=== PATIENT | male | born 1960 | race Caucasian/White ===

== ENCOUNTER 2017-10-17 10:25 | Emergency (ER) | payer BC, SELFPAY ==
[2017-10-17 10:26] VITALS: BP 114/79; PULSE 87; RESP 18; TEMP 37.2; O2SAT 98; BMI 22.9
--- NOTE | 2017-10-17 10:35 | EKG12_ITS ---
Test Reason : GEN ILLNESS Blood Pressure : / mmHG Vent. Rate : 066 BPM Atrial Rate : 066 BPM P-R Int : 182 ms QRS Dur : 078 ms QT Int : 368 ms P-R-T Axes : 071 062 058 degrees QTc Int : 385 ms Normal sinus rhythm Normal ECG Confirmed by BENNIE KNUTSON, BIENVENIDO ([id number]), electronic news gathering editor SAUNDRA HWANG ([id number]) on 10/19/2017 3:58:42 PM Referred By: JENNIFER Confirmed By:BIENVENIDO AVERY MD
--- NOTE | 2017-10-17 10:42 | ED.DCSUM_ITS ---
- ER Visit Summary Date of Service: 10/17/17 Chief Complaint: Weakness History of Present Illness: The patient is a 56 M [place] to the emergency department generalized weakness. The patient thinks that he may have had heat stroke yesterday. He states he was out in the heat all day Tuesday and yesterday morning. He states that he was feeling weakness and generalized malaise. He denies any chest pain or trouble breathing. He states that he did stay in the air conditioning all day yesterday and drink a lot of fluid. He states he does not feel like he is urinating enough. States even today, he is still felt weak and worn out. He denies any fevers or chills. He takes no daily medications. Physical Examination: Vital signs reviewed General: Well-nourished, well-developed Head: Normocephalic, atraumatic Eyes: Pupils equal and reactive, extraocular muscles intact Neck, supple, no lymphadenopathy Heart: Regular rate and rhythm Respiratory: No distress, clear bilaterally Abdomen: Soft, nontender, nondistended, no peritoneal signs Back: Nontender Extremities: Nontender, no edema, no cords Skin: Normal color no rash Neuro: Alert and oriented, no focal or lateralizing deficits Test Results: [] Emergency Department Course and Treatment: The patient presents with history of heat exposure and generalized malaise. His symptoms are consistent with heat exhaustion. I did obtain screening labs which are unremarkable. Also obtained EKG which is unremarkable. The patient was aggressively hydrated and observed. Within an hour, he is beginning to have some improvement of symptoms. I do feel that this patient safe for outpatient therapy. His exam is unremarkable. His repeat heart rate is in the 70s. He is resting comfortably. He will be discharged. Treatment Plan: [] Disposition: Charge Impression: 1. Heat exhaustion This note was generated with [facility] dictation software. It may contain incorrect words, spelling, and punctuation that were not noted in review of the chart prior to signing ED Disposition - Plan for ED Patient: Chief Complaint: General Illness Instructions: ED Exhaustion Heat Referrals: Lc Luther MD [NON-STAFF] -
[2017-10-17] MEDS: 0.9% Normal Saline 1,000 ML 1000 ML IV (10:56)
[2017-10-17 11:02] LABS: Absolute Lymphocyte Count 1.57 X10^3/ul (0.83-4.51); Absolute Neutrophil Count 5.8 X10^3/uL (2.0-7.7); Basophil# 0.01 X10^3/uL; Basophil% 0.1 % (0-1); Eosinophils% 1.3 % (0-5); Hematocrit 45.3 % (40-54); Hemoglobin 15.6 g/dl (13.0-16.5); Lymphocyte # 1.57 X10^3/ul (4.0); Lymphocyte % 19.8 % (19-41); Mean Corp Hgb Conc 34.4 g/gl (32-36); Mean Corpuscular Hgb 32.1 pg (27.0-32.0); Mean Corpuscular Volume 93.2 fL (80-94); Mean Platelet Vol. 8.9 fl (6.2-12.0); Monocyte# 0.42 X10^3/uL; Monocyte% 5.3 % (0-10); Neutrophil # 5.82 X10^3/uL (2.7-7.7); Neutrophil % 73.5 % (47-70); Platelet Count 298 K/mm3 (150-450); RBC Distribution Width CV 13.1 % (11.6-14.6); RBC Distribution Width SD 44.4 fl (35.1-43.9); Red Blood Count 4.86 M/mm3 (4.6-6.2); White Blood Count 7.9 K/mm3 (4.4-11.0)
[2017-10-17 11:03] LABS: POSITIVE COUNT NO; POSITIVE DIFFERENTIAL NO; POSITIVE MORPHOLOGY NO
[2017-10-17 11:15] LABS: Anion Gap 3 (5-15); BUN 9 mg/dL (7-18); BUN/Creat Ratio 10.3 RATIO (10-20); Calcium,Total 8.9 mg/dL (8.5-10.1); Chloride 108 mmol/L (98-107); Creatinine, Serum 0.87 mg/dL (0.70-1.30); EST Glomerular Filtration Rate 95 mL/min (>60); Est Glom Filt Rate - Afr Amer 115 mL/min (>60); Estimated Creatinine Clearance 95.01 ml/min; Glucose 99 mg/dL (74-106); Sodium Level 139 mmol/L (136-145)
[2017-10-17 11:54] VITALS: BP 119/72; PULSE 60; RESP 9; O2SAT 100
== END 2017-10-17 11:55 | disposition home or self-care (01) ==
LOC: ED 10:56
PROVIDERS: Emergency Provider Emergency Medicine; Family Provider Family Medicine; PCP Family Medicine
DX: T67.5XXA Heat exhaustion, unspecified, initial encounter (principal); X30.XXXA Exposure to excessive natural heat, initial encounter; Y93.9 Activity, unspecified; Y92.89 Other specified places as the place of occurrence of the external cause; Y99.9 Unspecified external cause status; Z87.891 Personal history of nicotine dependence
CPT/HCPCS: 80048; 85025; 93005; 99284; J7030; A4216

== ENCOUNTER 2017-12-18 10:47 | Emergency (ER) | payer BC, SELFPAY ==
[2017-12-18 10:48] VITALS: BP 144/76; PULSE 97; RESP 18; TEMP 37; O2SAT 98; BMI 22.9
--- NOTE | 2017-12-18 11:26 | ED.VISSUMM ---
- ER Visit Summary Date of Service: 12/18/17 Chief Complaint: Insect sting right upper arm History of Present Illness: The patient is a 57 M presenting after sting to his right arm which occurred 30 minutes prior to arrival. He complains of pain to the area. He denies any difficulty breathing or swallowing. He denies any sensation of tongue swelling. He was at home when this occurred. He denies other complaints. Physical Examination: Vitals are stable. Patient is afebrile. Alert no acute distress. HEENT exam is unremarkable. No tongue swelling. No pharyngeal edema Neck is supple. Lungs are clear and equal bilaterally. Heart is regular rate and rhythm. Abdomen is soft nontender nondistended. Extremities circular area of erythema to the right upper arm. Neurovascularly intact distally Skin is warm and dry. No focal neurologic deficit. Remainder of exam is unremarkable. Emergency Department Course and Treatment: Patient drove himself to the emergency department. He was given Kenalog IM. He was observed and had no further symptoms. On reevaluation he continues to have no difficulty breathing or swallowing. No tongue swelling. He is advised to take Benadryl as needed at home. He is advised to return to the ED for any worsening complaints. Advised to follow-up with his primary care physician. Disposition: Discharge home Impression: Insect sting, right upper arm This note was generated with [employer] dictation software. It may contain incorrect words, spelling, and punctuation that were not noted in review of the chart prior to signing ED Disposition - Plan for ED Patient: Chief Complaint: Bite Referrals: Celso Vazquez MD [Primary Care Provider] -
--- NOTE | 2017-12-18 11:29 | ED.DEP ---
ED Disposition - Plan for ED Patient: Chief Complaint: Bite Instructions: ED Bite Sting Insect Gen Allergic React Referrals: Celso Vazquez MD [Primary Care Provider] -
[2017-12-18] MEDS: Triamcinolone Acetonide 40 MG/ML Vial IM (12:15)
[2017-12-18 12:36] VITALS: BP 129/79; PULSE 81; RESP 16; O2SAT 99
== END 2017-12-18 12:37 | disposition home or self-care (01) ==
LOC: ED 11:45
PROVIDERS: Emergency Provider Emergency Medicine; Family Provider Family Medicine; PCP Family Medicine
DX: S40.861A Insect bite (nonvenomous) of right upper arm, initial encounter (principal); W57.XXXA Bitten or stung by nonvenomous insect and other nonvenomous arthropods, initial encounter; Y93.9 Activity, unspecified; Y92.89 Other specified places as the place of occurrence of the external cause; Y99.9 Unspecified external cause status; Z72.0 Tobacco use
CPT/HCPCS: 96372; 99282

== ENCOUNTER → 2018-08-14 09:27 | Outpatient (CLI) | payer BC, SELFPAY ==
--- NOTE | 2018-08-14 09:38 | MRI_ITS ---
STUDY: MRI CERVICAL SPINE WITHOUT CONTRAST REASON FOR EXAM: Male, 57 years old. Cervical myelopathy, right arm pain TECHNIQUE: Standardized fat and water weighted pulse sequences were obtained in the sagittal and axial planes. COMPARISON: None FINDINGS: Normal foramen magnum and brainstem-cervical cord junction. Normal craniovertebral junction. Normal anterior atlantoaxial articulation. Normal odontoid process. There is mild reversal of the normal cervical lordosis. There are Modic changes in the C6 and C7 vertebral bodies. C2-3: Normal endplates. Normal disc height, signal and morphology. Normal central canal and intervertebral neural foramina. C3-4: Normal endplates. There is posterior disc osteophyte complex and mild annular disc bulge abutting the ventral spinal cord and causing mild central canal narrowing. Moderate right and mild left foraminal narrowing.. C4-5: Normal endplates. There is annular disc bulge and right paracentral and foraminal disc osteophyte complex abutting the ventral spinal cord and causing moderate central canal narrowing with effacement of the dorsal CSF space. There is marked right uncovertebral hypertrophy. Marked right and moderate left foraminal narrowing. C5-6: Normal endplates. There is posterior disc osteophyte complex and mild annular disc bulge abutting the ventral spinal cord and causing mild central canal narrowing. There is marked left uncovertebral hypertrophy. Moderate right and marked left foraminal narrowing.. C6-7: Normal endplates. There is posterior disc osteophyte complex and mild annular disc bulge causing mild central canal narrowing. There is marked left uncovertebral hypertrophy. mild right and marked left foraminal narrowing.. There is a 5 mm right foraminal cyst C7-T1: Normal endplates. Normal disc height, signal and morphology. Normal central canal and intervertebral neural foramina. There is a 4 mm left foraminal cyst. Normal cervical cord. Normal visualized soft tissue structures. MRI/Spine Cervical (Routine) IMPRESSION: Moderate to marked multilevel degenerative disc disease is most prominent at C3-C4, C4-C5, C5-C6 and C6-C7 as described above. Electronically Signed: Inez Hairston, at 11:22 EDT Tel , Service support ,
--- NOTE | 2018-08-14 09:38 | MRI_ITS ---
STUDY: MRI RIGHT SHOULDER REASON FOR EXAM: Male, 57 years old. Right shoulder pain radiating from the neck TECHNIQUE: Standardized fat and water weighted pulse sequences were obtained in all 3 orthogonal planes. COMPARISON: None. FINDINGS: Normal supraspinatus tendon. Normal infraspinatus tendon. Normal subscapularis tendon. Normal teres minor tendon. Normal supraspinatus muscle. Normal infraspinatus muscle. Normal subscapularis muscle. Normal teres minor muscle. Normal glenohumeral articulation. Normal humeral head and visualized proximal humerus. Normal biceps labral complex. Normal intracapsular long biceps tendon. Normal labrum. Normal capsulo- ligamentous complex. Normal rotator interval. There is mild osteoarthritis of the acromioclavicular articulation. There is a Type II morphology (curved), with a neutral orientation. There is no subacromial-subdeltoid bursal fluid. Normal visualized coracohumeral and coracoacromial ligaments. Normal quadrilateral space. Normal axillary space. Normal deltoid muscle. Normal trapezius muscle. MRI/Upper Ext Joint Only(Routine) IMPRESSION: Mild osteoarthritis of the acromioclavicular joint. Otherwise, normal MRI of the shoulder. Electronically Signed: Inez Yovanny, at 12:00 EDT Tel , Service support ,
== END ==
PROVIDERS: Family Provider Family Medicine; PCP Family Medicine; Referring Provider Orthopaedic Surgery; Visit Provider Orthopaedic Surgery
DX: G95.9 Disease of spinal cord, unspecified (principal); M25.511 Pain in right shoulder
CPT/HCPCS: 72141; 73221

== ENCOUNTER 2018-11-09 09:13 | Outpatient (RCR) | payer BC, SELFPAY ==
--- NOTE | 2018-11-06 11:17 | HP.OTFCE.D ---
[facility] D/C Summary - Discharge SOILA TREJO WAS NOT SEEN FOR [facility] DISABILITY WAS APPROVED AND HE CANCELED APPOINTMENT ON 11/06/18 AND IS DISCHARGED.
== END 2018-11-09 09:14 | disposition home or self-care (01) ==
LOC: OT 09:13
PROVIDERS: Family Provider Family Medicine; PCP Family Medicine; Referring Provider Family Medicine; Visit Provider Family Medicine
DX: M50.31 Other cervical disc degeneration, high cervical region (principal)

== ENCOUNTER 2024-03-01 07:48 | Emergency (ER) | payer BC, MEDICARE, SELFPAY ==
[2024-03-01 07:49] VITALS: BP 123/87; PULSE 68; RESP 18; TEMP 36.6; O2SAT 98; BMI 22.7
--- NOTE | 2024-03-01 07:59 | EDS_ITS ---
HPI History of Present Illness Chief Complaint: Bite Informant: patient Narrative Narrative: 63-year-old male presenting to the emergency room with the chief complaint of bat bite. Patient states he came home this morning and noticed something on the floor. He has 2 Huskies and believes that they attacked the bat. He went to pick it up and the creature bit his right index finger. He states he washed the wound and put rubbing alcohol on it and noticed 2 small pinpoint injuries to the fat pad of the right index finger. Denies any other injuries. Tetanus Immunization: 5-10 years PFSH PFS Home Medications ?Medication ?Instructions ?Recorded ?Last Taken ?Type NK 10/17/17 Unknown History Allergy/AdvReac Type Severity Reaction Status Date / Time No Known Allergies Allergy Verified 12/18/17 10:49 Social History Smoking Status: Current every day smoker tobacco type: cigarettes ROS ROS ED Constitutional Constitutional ED: Denies chills or weight loss Eyes Eyes: Denies change in vision or diplopia ENT ENT ED: Denies ear pain, rhinorrhea or sore throat Cardiovascular Cardiovascular: Denies chest pain, orthopnea, palpitations or racing heartbeat Respiratory/Chest Respiratory/Chest: Denies cough, dyspnea or orthopnea Gastrointestinal Gastrointestinal: Denies abdominal pain, diarrhea, nausea or vomiting Genitourinary Genitourinary ED: Denies dysuria, hematuria or urinary frequency Musculoskeletal Musculoskeletal: Denies arthralgias or myalgias Integumentary Reports other Details: See history of present illness ; Denies abscess or rash Neurologic Neurologic: Denies headache(s) or weakness Psychiatric Psychiatric: Denies anxiety, depression, suicidal ideation or suicidal thoughts Endocrine Endocrinology: Denies polydipsia, polyphagia or polyuria Allergic/Immunologic Allergic/Immunologic ED: Denies mouth swelling, tongue swelling or urticaria EXAM Physical Exam Const Vital Signs: 03/01/24 07:49 Temperature 97.8 F Temperature Source Oral Pulse Rate 68 Respiratory Rate 18 Blood Pressure 123/87 H Blood Pressure Mean 99 Pulse Ox 98 Oxygen Delivery Method Room Air Positive well nourished and well developed General Appearance ED: well developed and NAD HEENT Reports normocephalic, head/scalp atraumatic and moist mucous membranes Eyes PERRL and EOMs intact bilaterally Neck no lymphadenopathy, supple and no JVD Resp normal respiratory effort and clear to auscultation bilaterally Cardio regular rate, regular rhythm and no murmurs GI normal to inspection, nondistended, normoactive bowel sounds and non-tender Palpation: soft Back/Spine no CVA tenderness and normal ROM Extremity normal to inspection Extremity Narrative: There is no focal swelling ecchymosis scab or obvious lesions. He points to a specific area but I do not see a obvious puncture. General Extremety ED: Negative for edema General Extremity: Negative for edema Neuro oriented x3 and CN's II-XII intact bilaterally Sensorium / Orientation: alert Motor Exam: strength 5/5 throughout Psych mental status grossly normal Mood & Affect: Negative for depressed or tearful Skin no rashes or lesions noted and no wounds MDM MDM MDM Narrative Medical decision making narrative: Differential diagnosis includes but not limited to bite abrasion rabies exposure Patient will be given rabies vaccination and immunoglobulin. Local wound care and monitoring of finger for infection. Vaccination schedule given to patient. I injected 4.8 mL into the dorsum of the right hand in the interspace between the thumb and the index finger. The skin was cleansed with alcohol prep pad. After injection bleeding controlled Band-Aid applied History & Record Review Discussion w/independent historian: Patient Discharge Plan Triage Chief Complaint: Bite ED Provider: Scot Garcia Dx/Rx/DC Orders Clinical Impression: Bat bite of finger Instructions: Understanding Rabies Prescriptions: No Action NK Primary Care Provider: Celso Vazquez Referrals: Celso Vazquez MD [Primary Care Provider] - As Needed Print Language: Greenlandic Disposition Disposition: Home, Self Care
[2024-03-01] MEDS: Rabies Immune Globulin/PF 300 UNIT/ML, 5 ML VIAL 1440 UNIT IM (08:38)
[2024-03-01] MEDS: Rabies Vaccine,Human Diploid 2.5 UNITS Vial IM (08:45)
[2024-03-01 09:24] VITALS: BP 120/73; PULSE 76; RESP 14; TEMP 36.6; O2SAT 98
== END 2024-03-01 09:25 | disposition home or self-care (01) ==
PROVIDERS: Emergency Provider Emergency Medicine; PCP Family Medicine; Visit Provider Emergency Medicine
DX: S61.250A Open bite of right index finger without damage to nail, initial encounter (principal); F17.210 Nicotine dependence, cigarettes, uncomplicated; Z23 Encounter for immunization; W55.81XA Bitten by other mammals, initial encounter
CPT/HCPCS: 90675; 96372; 99283; 90375

== ENCOUNTER 2024-03-04 08:33 | Outpatient (CLI) | payer BC, MEDICARE, SELFPAY ==
[2024-03-04 08:40] VITALS: BP 135/87; PULSE 94; RESP 16; TEMP 36.6; O2SAT 100
[2024-03-04 08:41] VITALS: BP 135/87; PULSE 94; RESP 16; TEMP 36.6; O2SAT 100; BMI 22.8
[2024-03-04] MEDS: Rabies Vaccine,Human Diploid 2.5 UNITS Vial IM (08:50)
== END 2024-03-04 08:55 | disposition home or self-care (01) ==
PROVIDERS: PCP Family Medicine; Visit Provider Emergency Medicine
DX: Z23 Encounter for immunization (principal)
CPT/HCPCS: 90675; 96372

== ENCOUNTER 2024-03-08 08:15 | Outpatient (CLI) | payer BC, MEDICARE, SELFPAY ==
[2024-03-08 08:15] VITALS: BP 134/71; PULSE 84; RESP 12; O2SAT 99
[2024-03-08] MEDS: Rabies Vaccine,Human Diploid 2.5 UNITS Vial IM (08:43)
[2024-03-08 08:49] VITALS: BP 136/81; PULSE 82; RESP 14; TEMP 36.3; O2SAT 98
== END 2024-03-08 09:12 | disposition home or self-care (01) ==
LOC: ED 09:12
PROVIDERS: PCP Family Medicine
DX: Z23 Encounter for immunization (principal)
CPT/HCPCS: 90675; 96372

== ENCOUNTER 2024-03-15 08:02 | Outpatient (CLI) | payer BC, MEDICARE, SELFPAY ==
[2024-03-15 08:03] VITALS: BP 121/79; PULSE 84; RESP 16; TEMP 36.7; O2SAT 100; BMI 22.2
[2024-03-15 08:05] VITALS: BMI 22.1
[2024-03-15] MEDS: Rabies Vaccine,Human Diploid 2.5 UNITS Vial IM (08:52)
== END 2024-03-15 08:54 | disposition home or self-care (01) ==
PROVIDERS: PCP Family Medicine
DX: Z23 Encounter for immunization (principal)
CPT/HCPCS: 90471; 90675

== ENCOUNTER 2025-04-26 12:29 | Emergency (ER) | payer BC, MEDICARE, SELFPAY ==
[2025-04-26] VITALS (7 sets, daily range): BP systolic 115–139; BP diastolic 60–77; PULSE 80–92; RESP 16–19; TEMP 36.4–37; O2SAT 98–100; BMI 21.4
--- OUTSIDE RECORDS SUMMARY | 2025-04-26 13:34 | XMS RPT_ITS | CCD ---
Author Organization [facility] Care Team Providers Care Flight Engineer Helicopter Name Role Phone AUGUSTA CHENG Unavailable Unavailable Scot Garcia Attending Unavailable Augusta Cheng Primary Care Unavailable Provider, Ed Physician Attending Augusta Owens Primary Care Unavailable Provider, Ed Physician Attending Augusta Owens Primary Care Unavailable Augusta Cheng Primary Care Unavailable Scot Garcia Attending Unavailable SAE OLIVARES Referring Unavailable PROVIDER, UNKNOWN Admitting Unavailable PROVIDER, UNKNOWN Attending Unavailable SAE OLIVARES Referring Unavailable PROVIDER, UNKNOWN Admitting Unavailable PROVIDER, UNKNOWN Attending Unavailable Medications Current Medications Medication Drug Class(es) Dates Sig (Normalized) Sig (Original) COMPOUNDED PRESCRIPTION (4 sources) Start: 04-23-2016 COMPOUNDED PRESCRIPTION Sildenafil 20 mg pills. Take as directed prn prior to sexual activity 25 tablet 3 04/23/2016 Active Comment on above: Sildenafil 20 mg pil ls. Take as directed prn prior to sexual activity metFORMIN hydrochloride 500 mg oral tablet (4 sources) Biguanide Start: 10-25-2016 take 1 tablet by mouth twice daily at mealtime metFORMIN (GLUCOPHAGE) 500 mg tablet Indications: Elevated glucose Take 1 tablet by mouth twice daily with meals. . 60 tablet 11 10/25/2016 Active Comment on above: Take 1 tablet by oma th twice daily with meals. . MULTI-VITAMIN ORAL (4 sources) MULTI-VITAMIN ORAL Take by mouth. 0 Active Comment on above: Take by mouth. naproxen sodium 220 mg oral tablet (4 sources) Nonsteroidal Anti-inflammatory Drug Start: 10-22-2016 take 2 tablets by mouth twice daily at mealtime naproxen sodium (ALEVE) 220 mg tablet Take 2 tablets by mouth twice daily with meals. TAKE WITH FOOD 0 10/22/2016 Active Comment on above: Take 2 tablets by mo uth twice daily with meals. TAKE WITH FOOD tadalafil 20 mg oral tablet (4 sources) Phosphodiesterase 5 Inhibitor Start: 07-28-2015 take 1 tablet by mouth once daily Tadalafil (CIALIS) 20 mg tablet Indications: Erectile dysfunction, unspecified erectile dysfunction type Take 1 tablet by mouth once daily. 6 tablet 5 07/28/2015 Active Comment on above: Take 1 tablet by oma th once daily. Vitamin B Complex (4 sources) vitamin B comple x (SUPER B [id number] ORAL) Take by mouth. 0 Active Comment on above: Take by mouth. Problems Active Problems Problem Classification Problem Date Documented Da te Episodic/Chronic Calculus of urinary tract (4 sources) Kidney stone; Translations: [Calculus of kidney] 04-27-2021 Episodic Immunizations and screening for infectious disease (1 source) Encounter for immunization; Translations: [Encounter for immunization] Onset: 04-09-2024 Episodic Open wounds of extremities (1 source) Open bite of right index finger without damage to nail, initial encounter; Translations: [Open bite of right index finger without damage to nail, initial encounter] Onset: 03-21-2024 Episodic Other male genital disorders (4 sources) Male erectile dysfunction, unspecified; Translations: [Impotence of organic origin] Onset: 07-28-2015 07-28-2015 Chronic Spondylosis; intervertebral disc disorders; other back problems (1 source) Cervicalgia; Translations: [Cervicalgia] Onset: 02-12-2025 Episodic Unclassified (1 source) Low back pain, unspecified; Translations: [Low back pain, unspecified] Onset: 02-12-2025 Past or Other Problems Problem Classification Problem Date Documented Da te Episodic/Chronic Other lower respiratory disease (4 sources) H/O: pneumothorax; Translations: [Personal history of other diseases of the respiratory system] Onset: 07-28-2015 07-28-2015 Episodic Other non-traumatic joint disorders (1 source) Pain in right shoulder; Translations: [Pain in right shoulder] Onset: 10-22-2016 Episodic Results Test Name Value Interpretation Reference Range Facil ity Emergency Department Summary on 03-01-2024 Emergency Department Summary [facility] Medical Records Department [address] [place] [address] Emergency Department Summary 03/01/24 MR#: [id number] Acct: [id number] Name: SOILA GALINDO Rep #: [id number] : 1960 63 From: Scot Garcia DO PCP: Dr. Augusta Cheng MD Status:DEP ER Location: ED HPI History of Present Illness Chief Complaint: Bite Informant: patient Narrative Narrative: 63-year-old male presenting to the emergency room with the chief complaint of bat bite. Patient states he came home this morning and noticed something on the floor. He has 2 Huskies and believes that they attacked the bat. He went to pick it up and the creature bit his right index finger. He states he washed the wound and put rubbing alcohol on it and noticed 2 small pinpoint injuries to the fat pad of the right index finger. Denies any other injuries. Tetanus Immunization: 5-10 years PFSH PFSH Home Medications ???Medication ???Instructions ???Recorded ???Last Taken ???Type NK 10/17/17 Unknown History Allergy/AdvReac Type Severity Reaction Status Date / Time No Known Allergies Allergy Verified 12/18/17 10:49 Social History Smoking Status: Current every day smoker tobacco type: cigarettes ROS ROS ED Constitutional Constitutional ED: Denies chills or weight loss Eyes Eyes: Denies change in vision or diplopia ENT ENT ED: Denies ear pain, rhinorrhea or sore throat Cardiovascular Cardiovascular: Denies chest pain, orthopnea, palpitations or racing heartbeat Respiratory/Chest Respiratory/Chest: Denies cough, dyspnea or orthopnea Gastrointestinal Gastrointestinal: Denies abdominal pain, diarrhea, nausea or vomiting Genitourinary Genitourinary ED: Denies dysuria, hematuria or urinary frequency Musculoskeletal Musculoskeletal: Denies arthralgias or myalgias Integumentary Reports other Details: See history of present illness ; Denies abscess or rash Neurologic Neurologic: Denies headache(s) or weakness Psychiatric Psychiatric: Denies anxiety, depression, suicidal ideation or suicidal thoughts Endocrine Endocrinology: Denies polydipsia, polyphagia or polyuria Allergic/Immunologic Allergic/Immunologic ED: Denies mouth swelling, tongue swelling or urticaria EXAM Physical Exam Const Vital Signs: 03/01/24 07:49 Temperature 97.8 F Temperature Source Oral Pulse Rate 68 Respiratory Rate 18 Blood Pressure 123/87 H Blood Pressure Mean 99 Pulse Ox 98 Oxygen Delivery Method Room Air Positive well nourished and well developed General Appearance ED: well developed and NAD HEENT Reports normocephalic, head/scalp atraumatic and moist mucous membranes Eyes PERRL and EOMs intact bilaterally Neck no lymphadenopathy, supple and no JVD Resp normal respiratory effort and clear to auscultation bilaterally Cardio regular rate, regular rhythm and no murmurs GI normal to inspection, nondistended, normoactive bowel sounds and non-tender Palpation: soft Back/Spine no CVA tenderness and normal ROM Extremity normal to inspection Extremity Narrative: There is no focal swelling ecchymosis scab or obvious lesions. He points to a specific area but I do not see a obvious puncture. General Extremety ED: Negative for edema General Extremity: Negative for edema Neuro oriented x3 and CN's II-XII intact bilaterally Sensorium / Orientation: alert Motor Exam: strength 5/5 throughout Psych mental status grossly normal Mood Affect: Negative for depressed or tearful Skin no rashes or lesions noted and no wounds MDM MDM MDM Narrative Medical decision making narrative: Differential diagnosis includes but not limited to bite abrasion rabies exposure Patient will be given rabies vaccination and immunoglobulin. Local wound care and monitoring of finger for infection. Vaccination schedule given to patient. I injected 4.8 mL into the dorsum of the right hand in the interspace between the thumb and the index finger. The skin was cleansed with alcohol prep pad. After injection bleeding controlled Band-Aid applied History Record Review Discussion w/independent historian: Patient Discharge Plan Triage Chief Complaint: Bite ED Provider: Scot Garcia Dx/Rx/DC Orders Clinical Impression: Bat bite of finger Instructions: Understanding Rabies Prescriptions: No Action NK Primary Care Provider: Augusta Cheng Referrals: Augusta Cheng MD [Primary Care Provider] - As Needed Print Language: Frisian Disposition Disposition: Home, Self Care What to do if you have Problems For any increased pain, shortness of breath, bleeding, nausea or vomiting, chest pain, or any unexpected problems, contact your Primary Care Provider. Call Doct (more content not included)... [facility] SOILA GALINDO ([id number]) 1960 M Date Time Provider Department 10/24/23 AUGUSTA CHENG During your visit today, we recorded the following information about you: Su Crowley MA 10/24/2023 8:41 AM Signed Type of form: FMLA Intermittent from pt's spouse Employer [employer] Form received via walk in When form is completed, Fax form to [phone], contact to see if she wants to olive picker original. Form has been forwarded to Physician Desk: CHANTAL Linton Kathryn, MA 11/04/2023 8:22 AM Signed Faxed. Shahnaz Bravo MA Allergies As of Date: 10/24/2023 (No Known Allergies) Date Reviewed: 12/12/2020 Reviewed by: Monica Hernandez APRN.BIN WORKER - Fully Assessed Reason for Visit: Forms [913] Cmt: FMLA Prescriptions as of 11/04/2023 - vitamin B complex (SUPER B [id number] ORAL) Take by mouth. - MULTI-VITAMIN ORAL Take by mouth. - metFORMIN (GLUCOPHAGE) 500 mg tablet Take 1 tablet by mouth twice daily with meals. . - naproxen sodium (ALEVE) 220 mg tablet Take 2 tablets by mouth twice daily with meals. TAKE WITH FOOD - COMPOUNDED PRESCRIPTION Sildenafil 20 mg pills. Take as directed prn prior to sexual activity - Tadalafil (CIALIS) 20 mg tablet Take 1 tablet by mouth once daily. Problem List As Of Date 10/24/2023 Noted Resolved Renal calculi [N20.0] History of pneumothorax [Z87.09] 07/28/2015 Erectile dysfunction [N52.9] 07/28/2015 Encounter Status:Closed by SHAHNAZ BRAVO on 11/04/23 [facility] Encounters Encounter Date Encounter Type Care Provider Facility Start: 02-12-2025 End: 02-12-2025 ambulatory SAE OLIVARES [facility] Start: 03-15-2024 End: 03-15-2024 ambulatory Ed Physician Provider Facility:[facility] Start: 03-08-2024 End: 03-08-2024 ambulatory Ed Physician Provider Facility:[facility] Start: 03-04-2024 End: 03-04-2024 ambulatory Scot Garcia Facility:[facility] Start: 03-01-2024 End: 03-01-2024 Emergency department patient visit Augusta Cheng Facility:[facility] Start: 10-24-2023 Telephone encounter Augusta roe MD Work Phone: [facility] Comment on above: Forms (FMLA) Start: 07-15-2022 Orders Only August[facility] estrada MD [facility] Start: 10-05-2021 Telephone encounter Augusta roe MD Work Phone: [facility] Comment on above: Forms Start: 10-22-2016 Ambulatory AUGUSTA CHENG [facility] Procedures Date Procedure Procedure Detail Performing Clinician Start: 12-15-2020 Lipid 1996 panel - S charity or Plasma Augusta Cheng MD Work Phone: Start: 12-12-2020 Adult depression screening assessment Augusta Cheng MD Work Phone: Plan of Treatment Date Care Activity Detail Author Start: 04-04-2028 Urine microalbumin profile [facility] Start: 12-19-2025 PROSTATE CANCER SCRE ENING DISCUSSION PROSTATE CANCER SCREENING DISCUSSION [facility] Start: 12-19-2025 Prostate specific an tigen measurement Prostate Cancer Screening Discussion [facility] Start: 12-15-2025 Lipid panel Lipid Screening [facility] Start: 12-15-2025 LIPID SCREEN LIPID SCREEN [facility] Start: 01-01-2024 Influenza vaccination Influenza Vacc ine (#1) [facility] Start: 12-16-2023 DIABETES SCREEN [facility] Start: 12-16-2023 Diabetes Screening Diabetes Screenin g [facility] Start: 05-02-2023 Behavioral Health Screening Behavioral Health Screening [facility] Start: 12-31-2022 Covid-19 Vaccine ( season) Covid-19 Vaccine ( season) [facility] Start: 05-02-2022 DEPRESSION ASSESSMENT DEPRESSION ASS ESSMENT [facility] Start: 12-31-2021 Influenza vaccination C [facility] Start: 12-12-2021 Adult depression screening assessment DEPRESSION SCREENING [facility] Start: 12-12-2021 COLORECTAL CANCER SCREENING COLORECTAL CANCER SCREENING [facility] Comment on above: Postponed from 12/08 (Declined at this time) Start: 02-27-2019 FECAL OCCULT BLOOD FECAL OCCULT BLOO D [facility] Start: 02-27-2019 Screening for malign ant neoplasm of colon Fecal Occult Blood [facility] Start: 2018 RSV Vaccine (1 - 1-d ose 60+ series) RSV Vaccine (1 - 1-dose 60+ series) [facility] Start: 02-28-2018 COLORECTAL CANCER SCREENING COLORECTAL CANCER SCREENING [facility] Start: 02-28-2018 Screening for malign ant neoplasm of colon Colorectal Cancer Screening [facility] Start: 2008 SHINGRIX VACCINE (1 of 2) SHINGRIX V ACCINE (1 of 2) [facility] Start: 12-09-2003 COLOGUARD (FIT-DNA) COLOGUARD (FIT-D NA) [facility] Start: 12-09-2003 Colonoscopy COLONOSCOPY [facility] Start: 12-09-[address] COLONOGRAPHY [facility] Start: 12-09-2003 Screening for malign ant neoplasm of colon [facility] Start: 12-09-2003 SIGMOIDOSCOPY SIGMOIDOSCOPY [facility] Start: 1964 PNEUMOCOCCAL (1 - PCV) PNEUMOCOCCAL (1 - PCV) [facility] Start: 1964 Pneumococcal vaccination Pneum ococcal Vaccine (1 of 2 - PCV) [facility] Start: 12-09-1963 COVID-19 VACCINE (#1) COVID-19 VACCI NE (#1) [facility] Start: 06-10-1959 COVID-19 VACCINE (#1) COVID-19 VACCI NE (#1) [facility] Immunizations Immunization Date Immunization Notes Care Provider Domingo gomes 02-27-2018 influenza virus vaccine, unspecified formulation Augusta Cheng MD Work Phone: [facility] Payers Date Payer Category Payer Self-pay 2024 Unknown [id number] 2024 Unknown [id number] 2020 Unknown [employer]P [id number] 2020-Present [phone] [address] [id number] PPO [id number] 2018 Unknown [id number] Unknown [id number] Unknown [id number] Unknown [id number] Unknown [id number] Social History Date Type Detail Facility Start: 11-05-2016 Tobacco smoking stat us [facility] Smokes tobacco daily [facility] Start: 12-12-2020 End: 12-16-2021 Alcohol intake Current drinker of alcohol (finding) [facility] Start: 04-06-2020 End: 12-12-2020 Alcohol intake [facility] Start: 1960 Sex Assigned At Not on file [facility] History of tobacco use Cigarette Smoker [facility] Start: 11-05-2016 Tobacco use and exposure Smoke less tobacco non-user [facility] Start: 04-06-2020 End: 12-16-2021 Tobacco use panel [facility] Adult Depression Scr eening Assessment 2 [facility] Telephone encounter Note 11-04-2023 Telephone Encounter - Shahnaz Bravo MA - 11/04/2023 8:22 AM EDT Note Date & Type Note Facility 11-04-2023 Telephone encount er Note Faxed. Shahnaz Bravo MA [facility] Note 11-04-2023 Telephone Encounter - Shahnaz Bravo MA - 11/04/2023 8:22 AM EDTTelephone Encounter - Su Crowley MA - 10/24/2023 8:40 AM EDT Note Date & Type Note Facility 11-04-2023 Miscellaneous Notes Formattin g of this note might be different from the original. Faxed. Shahnaz Bravo MA Type of form: FMLA Intermittent from pt's spouse Employer [employer] Form received via walk in When form is completed, Fax form to [phone], contact to see if she wants to olive picker original. Form has been forwarded to Physician Desk: Dr. Taylor Crowley MA documented in this encounter [facility] Telephone encounter Note 10-24-2023 Telephone Encounter - Su Crowley MA - 10/24/2023 8:40 AM EDT Note Date & Type Note Facility 10-24-2023 Telephone encount er Note Type of form: FMLA Intermittent from pt's spouse Employer [employer] Form received via walk in When form is completed, Fax form to [phone], contact to see if she wants to olive picker original. Form has been forwarded to Physician Desk: Dr. Taylor Crowley MA [facility] History of Present illness Narrative 07-15-2022 Augusta Cheng MD - 07/15/2022 4:20 PM EDT Note Date & Type Note Facility 07-15-2022 History of Presen t illness Narrative Opened in error Augusta Cheng MD documented in this encounter [facility] Note 10-05-2021 Telephone Encounter - Su Crowley Ma - 10/05/2021 10:04 AM EDT Note Date & Type Note Facility 10-05-2021 Miscellaneous Notes Office received FMLA forms for pt to be completed for , Leatha Galindo. This has been faxed back to Comfort Esparza at the [employer] [facility] [employer] at [phone]. Su Crowley Ma documented in this encounter [facility] Summary Purpose Family History No Family History Records FoundNo Family History Records FoundNo Family History Records FoundNo Family History Records Found Advance Directives No Advanced Directives Records FoundNo Advanced Directives Records FoundNo Advanced Directives Records FoundNo Advanced Directives Records Found Additional Source Comments (unrecognized sect ion and content) No Status Records FoundNo Status Records FoundNo Status Records FoundNo Status Records Found INFORMATION SOURCE (unrecogn ized section and content) DATE [facility] DATE CREATED AUTHOR AUTHOR'S ORGANIZ ATION 11/04/2023 [facility] DATE CREATED AUTHOR AUTHOR'S ORGANIZ ATION 04/12/2024 [facility] DATE CREATED AUTHOR AUTHOR'S ORGANIZ ATION 02/13/2025 [employer] [facility] Source Comments (unrecognize d section and content) In the event this informatio n is protected by the Federal Confidentiality of Alcohol and Drug Abuse Patient Records regulations: The Federal rules restrict any use of the information to criminally investigate or prosecute any alcohol or drug abuse patient.[facility] the event this information is protected by the Federal Confidentiality of Alcohol and Drug Abuse Patient Records regulations: The Federal rules restrict any use of the information to criminally investigate or prosecute any alcohol or drug abuse patient.[facility] the event this information is protected by the Federal Confidentiality of Alcohol and Drug Abuse Patient Records regulations: The Federal rules restrict any use of the information to criminally investigate or prosecute any alcohol or drug abuse patient.[facility] the event this information is protected by the Federal Confidentiality of Alcohol and Drug Abuse Patient Records regulations: The Federal rules restrict any use of the information to criminally investigate or prosecute any alcohol or drug abuse patient.[facility] Reason for Visit (unrecogniz ed section and content) Reason Comments Forms Reason Comments Forms FMLA Care Teams (unrecognized sec tion and content) [employer] Relationship Specialty Start Date End Date Augusta Cheng MD [address] [place] [address] PCP - General Family Practice 07/28/15 [employer] Relationship Specialty Start Date End Date Augusta Cheng MD [address] [place] [address] PCP - General Family Medicine 07/28/15 [employer] Engineer [employer] Relationship Specialty Start Date End Date Augusta Cheng MD [address], [place] [address] PCP - General Family Medicine 07/28/15 Flight Engineer Helicopter Relationship Specialty Start Date End Date Augusta Cheng MD [address], [place] [address] PCP - General Family Medicine 07/28/15 FOR RECORDS PERTAINING TO PATIENTS WHO ARE OR HAVE BEEN ENROLLED IN A CHEMICAL DEPENDENCY/SUBSTANCEABUSE PROGRAM, SOME INFORMATION MAY BE OMITTED. This clinical summary was aggregated from multiple sources. Caution should be exercised in using it in the provision of clinical care. This summary normalizes information from multiple sources, and as a consequence, information in this document may materially change the coding, format and clinical context of patient data. In addition, data may be omitted in some cases. CLINICAL DECISIONS SHOULD BE BASED ON THE PRIMARY CLINICAL RECORDS. [facility]. provides no warranty or guarantee of the accuracy or completeness of information in this document.
--- NOTE | 2025-04-26 13:42 | EKG12_ITS ---
Test Reason : CP Blood Pressure : */* mmHG Vent. Rate : 80 BPM Atrial Rate : 80 BPM P-R Int : 172 ms QRS Dur : 80 ms QT Int : 354 ms P-R-T Axes : 36 71 67 degrees QTcB Int : 408 ms Normal sinus rhythm Borderline ECG Baseline wander Confirmed by Joby Rojo ([id number]), editorial assistant LARY CURTIS ([id number]) on 04/30/2025 6:15:06 AM Referred By: ANDREW/MARLINE Confirmed By: Joby Rojo
--- NOTE | 2025-04-26 13:55 | RAD_ITS ---
PROCEDURE: CHEST PA AND LATERAL 04/26/2025 REASON FOR EXAM: COUGH TECHNIQUE: Procedure Code: RADCXR Modality: DX Procedure: CHEST PA AND LATERAL FINDINGS: No focal consolidation. No pleural effusion or pneumothorax. Cardiac silhouette is within normal limits. No acute fractures. RAD/Chest PA and Lateral IMPRESSION: No focal consolidations. Reading Location: [facility]
--- NOTE | 2025-04-26 15:11 | EX.ED.DYSGE1 ---
HPI History of Present Illness Chief Complaint: Shortness of Breath Narrative Narrative: Patient is a 64-year-old male with past medical history of tobacco use who presents to the emergency department the chief complaint of cough, congestion not feeling well overall. He states that everybody in the house has been ill recently and he states that he was the last 1 to come down with the illness. He states that 2 days ago he had nausea vomiting as well as diarrhea but this has since resolved. He states that he wanted to be sure that he did not have pneumonia. PFSH PFS Medical History Smoker Home Medications ?Medication ?Instructions ?Recorded ?Last Taken ?Type prednisone 50 mg tablet 50 mg PO BID #4 tabs 04/26/25 Unknown Rx Allergy/AdvReac Type Severity Reaction Status Date / Time No Known Allergies Allergy Verified 04/26/25 12:29 Social History Smoking Status: Current every day smoker tobacco type: cigarettes ROS ROS ED ROS Narrative Constitutional: Denies any fevers, chills, headache Eyes: Denies double vision Cardiovascular: Denies chest pain Respiratory: Complains of cough Abdomen: Denies abdominal pain nausea vomit diarrhea : Denies urinary symptoms Neurological: Denies numbness, some tingling Musculoskeletal: Denies back pain Skin: Denies rashes or lesions EXAM Physical Exam Narrative Exam Narrative: General: Patient was lying in bed resting comfortably not appear to be in acute distress Head: Atraumatic, normocephalic Eyes: PERRL bilaterally, EOMI bilaterally, no conjunctival injection noted Neck: Soft, supple, trachea midline Cardiovascular: Regular rate and rhythm Respiratory: Clear to auscultation bilaterally Abdomen: Soft, nondistended, no tenderness to palpation Extremities: +5/5 strength noted in the bilateral upper and lower extremities Neurological: Patient is following commands knew that he was at [facility] year is 2024 Skin: Warm, dry, intact no rashes or lesions noted Const Vital Signs: 04/26/25 12:29 04/26/25 12:31 04/26/25 13:31 Temperature 97.5 F L 97.5 F L 98.6 F Temperature Source Oral Oral Oral Pulse Rate 92 87 80 Respiratory Rate 18 18 18 Respiratory Effort Blood Pressure 116/77 116/77 116/60 Blood Pressure Mean 90 90 78 Pulse Ox 100 100 100 Oxygen Delivery Method Room Air Room Air Room Air 04/26/25 14:00 04/26/25 14:15 04/26/25 14:29 Temperature 98.6 F Temperature Source Oral Pulse Rate 81 Respiratory Rate 19 H Respiratory Effort Short of Breath Blood Pressure 115/75 Blood Pressure Mean 88 Pulse Ox 100 98 Oxygen Delivery Method Room Air Room Air Room Air MDM MDM MDM Narrative Medical decision making narrative: Patient is a 64-year-old male who presented to the emergency department chief complaint of cough, feeling under the weather overall. On the differential diagnose includes but not limited to pneumonia, upper respiratory infection secondary to viral etiology. Patient's EKG was reviewed which showed sinus rhythm with a rate of 80 bpm [place] interval 172. Patient tested positive for influenza. Patient's symptoms have been going on for about a week now therefore he is not a candidate for Tamiflu. Patient's chest x-ray reviewed by myself by radiology showed no acute cardiopulmonary processes. Patient ambulated well here in the emergency department no hypoxia no tachycardia he was given a dose of oral prednisone here in the emergency department given his tobacco use history. Discussed results with the patient he would like to go home at this point in time he is advised to follow-up with his doctor in outpatient setting and return with worsening symptoms or any concerns. He is advised to take steroids as prescribed starting tomorrow. He is agreeable this plan all question concerns answered he is discharged home in stable condition Radiography Diagnostic Testing: Clinical Impression(s) from Imaging Studies Chest X-Ray 04/26/25 13:55 IMPRESSION: No focal consolidations. Reading Location: [facility] Discharge Plan Triage Chief Complaint: Shortness of Breath ED Provider: Scotty Yee Dx/Rx/DC Orders Clinical Impression: Cough, Upper respiratory infection, viral, Influenza A Prescriptions: New prednisone 50 mg tablet 50 mg PO BID Qty: 4 0RF Primary Care Provider: Celso Vazquez Referrals: Celso Vazquez MD [Primary Care Provider, Family Practice] Activity Restrictions/Additional Instructions: Start taking your steroids tomorrow as prescribed as you were given your first dose here you tested positive for influenza A. Return with worsening symptoms or any other concerns. Print Language: Welsh Disposition Disposition: Home, Self Care
== END 2025-04-26 15:29 | disposition home or self-care (01) ==
PROVIDERS: Emergency Provider Emergency Medicine; PCP Family Medicine; Visit Provider Emergency Medicine
DX: J10.1 Influenza due to other identified influenza virus with other respiratory manifestations (principal); F17.210 Nicotine dependence, cigarettes, uncomplicated; R05.9 Cough, unspecified
CPT/HCPCS: 71046; 87631; 93005; 99282